=== PATIENT | female | born 1970 | race Caucasian/White ===

== ENCOUNTER 2017-10-24 14:05 | Emergency (ER) | payer OTHER ==
[~2017-10-24] VITALS: Ht 165.1 cm; Wt 91.9 kg
[~2017-10-24 14:05] MED LIST: ALLEGRA60 MG PO; FIORINAL1 TABLET PO; Fioricet,Esgic,Repan PO; IMITREX100 MG PO; LEVOTHROID175 MCG PO; LEVOTHROID75 MCG PO; LOPRESSOR25 MG PO; LOPRESSOR50 MG PO; LYSINE1000 MG PO; Levothroid,Synthroid PO; Lopressor PO; Lysine,L-Lysine PO; MACROBID100 MG PO; Macrodantin PO; NITROFURANTOIN100 MG PO; PRENATAL TABLE1 EAC3 PO; Proventil,Ventolin H IH; RELPAX40 MG PO; SEASONALE,JO1 TABLET PO; SYNTHROID175 MCG PO; SYNTHROID88 MCG PO; TOPAMAX100 MG PO; TOPAMAX50 MG PO; TORADOL10 MG PO; Tears Naturale II,Ar BOTH EYES; Topamax PO; Tylenol Extra Streng PO; ULTRAM50 MG PO; VISINE15 ML BOTH EYES; Vicodin,Lortab 5/500 PO; Vitamin D, Drisdol PO; ZITHROMAX Z-PA250 MG PO; [UNRECOGNIZED DRUG - OTHER] PO; lortab elixir; nucynta
[2017-10-24] MEDS ORDERED: TRAMADOL HCL50 MG PO (16:47)
[2017-10-24 17:25] VITALS: BP 168/111
== END 2017-10-24 17:25 | disposition home or self-care (01) ==
LOC: EME 14:05
DX: S63.502A Unspecified sprain of left wrist, initial encounter (principal); S30.1XXA Contusion of abdominal wall, initial encounter; S30.0XXA Contusion of lower back and pelvis, initial encounter; V49.40XA Driver injured in collision with unspecified motor vehicles in traffic accident, initial encounter; Y92.410 Unspecified street and highway as the place of occurrence of the external cause; E05.90 Thyrotoxicosis, unspecified without thyrotoxic crisis or storm; F32.9 Major depressive disorder, single episode, unspecified; Z88.1 Allergy status to other antibiotic agents
CPT/HCPCS: 73110; 99281; 99283